=== PATIENT | male | born 1940 | race Caucasian/White ===

== ENCOUNTER 2018-10-26 16:34 | Inpatient (IN) ==
[2018-10-26 17:41] LABS: Basophils % 0.5 % (0.0-0.8); Eosinophils % 0.2 % (0.00-10.9); Hematocrit 45.8 VOL% (42.0-52.0); Hemoglobin 15.1 GM/DL (14.0-18.0); Immature Granulocytes % 0.7 %; Immature Granulocytes Absolute 0.03 #; Lymphocytes # 0.9 10*3/uL (1.4-4.0); Mean Platelet Volume 8.8 FL (9.6-12.0); Monocytes % 13.5 % (1.7-12.7); Neutrophils % 64.1 % (38.7-73.9); Platelet Count 172 T/CUMM (130-400); Red Blood Count 4.87 MC/CUMM (3.8-5.5); Red Cell Distribution Width 12.4 % (9.3-17.3); White Blood Count 4.2 T/CUMM (4-12)
[2018-10-26] MEDS ORDERED: ACETAMINOPHEN 500 MG TABLET PO STA (17:50)
[2018-10-26 17:51] LABS: PT Patient Result 11.1 SECS (9.6-12.2); Partial Thromboplastin Time 27.4 SECS (20.8-36.0)
[2018-10-26] MEDS ORDERED: ACETAMINOPHEN 500 MG TABLET ONE (17:51)
[2018-10-26 18:03] LABS: Albumin 3.7 G/DL (3.4-5.0); Bilirubin,Total 0.5 MG/DL (0.2-1.0); Calcium 8.7 MG/DL (8.5-10.1); Osmolality,Calculated 275.8 MOS/KG (273-304); Total Protein 7.4 G/DL (6.4-8.3)
[2018-10-26] MEDS ORDERED: LACTATED RINGERS 1,000 ML IV ONE (18:21)
[2018-10-26 18:27] LABS: Apearance,Urine CLEAR (Clear); Bilirubin,Urine Negative (Negative); Blood, Urine Negative (Negative); Glucose,Urine (UA) Negative (Negative); Ketones,Urine Negative (Negative); Mucus,Urine Occasional /LPF (Occasional); Nitrite,Urine Negative (Negative); Protein,Urine Negative; RBC,Urine 4 /HPF (0-4); Squamous Epithelial Cell,Urine Occasional /HPF (0-10); Urine Color Yellow (Yellow); Urine Specific Gravity 1.024 (1.001-1.035); Urine Urobilinogen < 2.0 EU/DL (0.2-1.0); WBC,Urine 4 /HPF (0-6)
[2018-10-26] MEDS ORDERED: ENOXAPARIN 40 MG/0.4 ML SYRINGE SUBCUT SCH (20:00)
[2018-10-26] MEDS ORDERED: FLUTICASONE 50 MCG NASAL SPRAY 16 GM BOTTLE BOTH NARES PRN (20:55)
[2018-10-26] MEDS ORDERED: SODIUM CHLORIDE 0.65% NASAL SPRAY 45 ML BOTTLE BOTH NARES PRN (20:55)
[2018-10-26] MEDS: DONEPEZIL 10 MG TABLET PO SCH (21:55)
[2018-10-26] MEDS: OSELTAMIVIR 30 MG CAPSULE PO SCH (21:56)
[2018-10-26] MEDS: FAMOTIDINE 20 MG TABLET PO SCH (21:56)
[2018-10-26] MEDS: ACETAMINOPHEN 500 MG TABLET PO SCH (21:56)
[2018-10-26] MEDS: cefTRIAXone 1,000 MG in SODIUM CHLORIDE 0.9% 100 ML IV SCH (21:57)
[2018-10-27] MEDS: ACETAMINOPHEN 500 MG TABLET PO PRN ×2 (05:09→16:14)
[2018-10-27 05:11] LABS: Basophils % 0.6 % (0.0-0.8); Hematocrit 41.9 VOL% (42.0-52.0); Immature Granulocytes % 0.6 %; Immature Granulocytes Absolute 0.02 #; Lymphocytes % 27.4 % (21.2-54.2); Mean Corpuscular HGB Conc 33.4 GM/DL (32-36); Mean Corpuscular Volume 93.3 FL (87-102); Mean Platelet Volume 9.1 FL (9.6-12.0); Monocytes % 8.6 % (1.7-12.7); Neutrophils % 62.8 % (38.7-73.9); Platelet Count 125 T/CUMM (130-400); Red Blood Count 4.49 MC/CUMM (3.8-5.5); Red Cell Distribution Width 12.4 % (9.3-17.3); White Blood Count 3.6 T/CUMM (4-12)
[2018-10-27] MEDS: VALSARTAN 160 MG TABLET PO SCH (08:45)
[2018-10-27] MEDS: amLODIPine 5 MG TABLET PO SCH (08:45)
[2018-10-27] MEDS: MONTELUKAST 10 MG TABLET PO SCH (08:45)
[2018-10-27] MEDS: PANTOPRAZOLE 40 MG TABLET PO SCH (08:45)
[2018-10-27] MEDS: IBUPROFEN 200 MG TABLET PO SCH (08:45)
[2018-10-27] MEDS: FAMOTIDINE 20 MG TABLET PO SCH ×2 (08:46→20:56)
[2018-10-27] MEDS: OSELTAMIVIR 30 MG CAPSULE PO SCH ×2 (10:17→20:56)
[2018-10-27] MEDS: cefTRIAXone 1,000 MG in SODIUM CHLORIDE 0.9% 100 ML IV SCH (20:55)
[2018-10-27] MEDS: ACETAMINOPHEN 500 MG TABLET PO SCH (20:56)
[2018-10-27] MEDS: DONEPEZIL 10 MG TABLET PO SCH (20:56)
[2018-10-28] MEDS: ACETAMINOPHEN 500 MG TABLET PO PRN (04:36)
[2018-10-28 05:26] LABS: Basophils % 0.3 % (0.0-0.8); Hematocrit 43.3 VOL% (42.0-52.0); Hemoglobin 14.6 GM/DL (14.0-18.0); Immature Granulocytes % 0.3 %; Immature Granulocytes Absolute 0.01 #; Lymphocytes # 0.9 10*3/uL (1.4-4.0); Lymphocytes % 27.9 % (21.2-54.2); Mean Corpuscular HGB Conc 33.7 GM/DL (32-36); Mean Platelet Volume 9.5 FL (9.6-12.0); Monocytes % 6.2 % (1.7-12.7); Neutrophils % 65.3 % (38.7-73.9); Platelet Count 97 T/CUMM (130-400); Red Blood Count 4.76 MC/CUMM (3.8-5.5); Red Cell Distribution Width 12.3 % (9.3-17.3); White Blood Count 3.2 T/CUMM (4-12)
[2018-10-28 05:52] LABS: Lymphocytes 28 % (20-55); Platelet Estimate Decreased; Segmented Neutrophils 68 % (50-85); Total Cells Counted 100
[2018-10-28 05:53] LABS: Hypochromasia 1+
[2018-10-28 05:56] LABS: Calcium 8.3 MG/DL (8.5-10.1); Osmolality,Calculated 271.1 MOS/KG (273-304)
[2018-10-28] MEDS ORDERED: MAGNESIUM SULF RIDER 4 GM in PREMIX 1 EACH IV ONE (08:03)
[2018-10-28] MEDS ORDERED: TUBERCULIN SKIN TEST 0.1 ML SYRINGE INTRADERM ONE (08:46)
[2018-10-28] MEDS: OSELTAMIVIR 30 MG CAPSULE PO SCH (09:07)
[2018-10-28] MEDS: IBUPROFEN 200 MG TABLET PO SCH (09:07)
[2018-10-28] MEDS: MONTELUKAST 10 MG TABLET PO SCH (09:07)
[2018-10-28] MEDS: amLODIPine 5 MG TABLET PO SCH (09:08)
[2018-10-28] MEDS: FAMOTIDINE 20 MG TABLET PO SCH ×2 (09:08→20:04)
[2018-10-28] MEDS: VALSARTAN 160 MG TABLET PO SCH (09:08)
[2018-10-28] MEDS: PANTOPRAZOLE 40 MG TABLET PO SCH (09:08)
[2018-10-28] MEDS: VANCOMYCIN INJ 1,250 MG in SODIUM CHLORIDE 0.9% 250 ML IV SCH (15:51)
[2018-10-28] MEDS ORDERED: GENTAMICIN INJ 560 MG in SODIUM CHLORIDE 0.9% 100 ML IV SCH (17:00)
[2018-10-28] MEDS: OSELTAMIVIR 75 MG CAPSULE PO SCH (20:02)
[2018-10-28] MEDS: ACETAMINOPHEN 500 MG TABLET PO SCH (20:02)
[2018-10-28] MEDS: DONEPEZIL 10 MG TABLET PO SCH (20:04)
[2018-10-28] MEDS ORDERED: cefTRIAXone 1,000 MG in SYRINGE 1 EACH IV SCH (21:00)
[2018-10-29] MEDS: VANCOMYCIN INJ 1,250 MG in SODIUM CHLORIDE 0.9% 250 ML IV SCH ×2 (03:37→16:05)
[2018-10-29] MEDS: ACETAMINOPHEN 500 MG TABLET PO PRN (05:45)
[2018-10-29 05:49] LABS: Eosinophils % 0.3 % (0.00-10.9); Hematocrit 45.8 VOL% (42.0-52.0); Hemoglobin 15.3 GM/DL (14.0-18.0); Immature Granulocytes % 0.3 %; Immature Granulocytes Absolute 0.01 #; Lymphocytes # 1.5 10*3/uL (1.4-4.0); Lymphocytes % 48.8 % (21.2-54.2); Mean Corpuscular HGB Conc 33.4 GM/DL (32-36); Mean Corpuscular Volume 92.2 FL (87-102); Mean Platelet Volume 9.9 FL (9.6-12.0); Monocytes % 6.7 % (1.7-12.7); Neutrophils % 42.9 % (38.7-73.9); Platelet Count 98 T/CUMM (130-400); Red Blood Count 4.97 MC/CUMM (3.8-5.5); Red Cell Distribution Width 12.6 % (9.3-17.3)
[2018-10-29 06:01] LABS: Osmolality,Calculated 267.4 MOS/KG (273-304)
[2018-10-29 06:12] LABS: Band Neutrophils 2 % (0-10); Hypochromasia 1+; Lymphocytes 41 % (20-55); Platelet Estimate Decreased; Segmented Neutrophils 47 % (50-85); Total Cells Counted 100
[2018-10-29] MEDS: IBUPROFEN 200 MG TABLET PO SCH (09:08)
[2018-10-29] MEDS: amLODIPine 5 MG TABLET PO SCH (09:08)
[2018-10-29] MEDS: FAMOTIDINE 20 MG TABLET PO SCH ×2 (09:08→21:36)
[2018-10-29] MEDS: VALSARTAN 160 MG TABLET PO SCH (09:08)
[2018-10-29] MEDS: OSELTAMIVIR 75 MG CAPSULE PO SCH ×2 (09:08→21:37)
[2018-10-29] MEDS: MONTELUKAST 10 MG TABLET PO SCH (09:09)
[2018-10-29] MEDS: PANTOPRAZOLE 40 MG TABLET PO SCH (09:09)
[2018-10-29] MEDS: DONEPEZIL 10 MG TABLET PO SCH (21:36)
[2018-10-29] MEDS: ACETAMINOPHEN 500 MG TABLET PO SCH (21:37)
[2018-10-30 05:38] LABS: Basophils % 0.4 % (0.0-0.8); Eosinophils % 0.4 % (0.00-10.9); Hematocrit 42.6 VOL% (42.0-52.0); Hemoglobin 14.2 GM/DL (14.0-18.0); Immature Granulocytes % 0.4 %; Immature Granulocytes Absolute 0.01 #; Lymphocytes # 1.6 10*3/uL (1.4-4.0); Lymphocytes % 56.9 % (21.2-54.2); Mean Corpuscular HGB Conc 33.3 GM/DL (32-36); Mean Corpuscular Volume 91.2 FL (87-102); Mean Platelet Volume 10.5 FL (9.6-12.0); Monocytes % 13.1 % (1.7-12.7); Neutrophils % 28.8 % (38.7-73.9); Platelet Count 110 T/CUMM (130-400); Red Blood Count 4.67 MC/CUMM (3.8-5.5); Red Cell Distribution Width 12.9 % (9.3-17.3); White Blood Count 2.8 T/CUMM (4-12)
[2018-10-30 05:54] LABS: Calcium 8.5 MG/DL (8.5-10.1); Osmolality,Calculated 276.7 MOS/KG (273-304)
[2018-10-30 06:04] LABS: Atypical Lymphocytes Few; Hypochromasia 1+; Lymphocytes 60 % (20-55); Platelet Estimate Decreased; Segmented Neutrophils 31 % (50-85); Total Cells Counted 100
[2018-10-30] MEDS: VALSARTAN 160 MG TABLET PO SCH (08:42)
[2018-10-30] MEDS: IBUPROFEN 200 MG TABLET PO SCH (08:42)
[2018-10-30] MEDS: MONTELUKAST 10 MG TABLET PO SCH (08:42)
[2018-10-30] MEDS: PANTOPRAZOLE 40 MG TABLET PO SCH (08:43)
[2018-10-30] MEDS: OSELTAMIVIR 75 MG CAPSULE PO SCH (08:43)
[2018-10-30] MEDS: amLODIPine 5 MG TABLET PO SCH (08:43)
[2018-10-30] MEDS: FAMOTIDINE 20 MG TABLET PO SCH (08:43)
[2018-10-30 12:22] VITALS: BP 117/69
== END 2018-10-30 11:55 | disposition swing bed (61) | DRG 153 ==
LOC: N.ED 16:34 → N.EDINP 16:34 → N.TELEN 20:38
PROVIDERS: ADMIT Internal Medicine; ATTEND Internal Medicine

== ENCOUNTER 2020-03-04 15:30 | Inpatient (IN) ==
[2020-03-04 15:34] LABS: Bacteria,Urine Trace /HPF (Negative); Bilirubin,Urine Negative (Negative); Blood, Urine Negative (Negative); Glucose,Urine (UA) Negative (Negative); Ketones,Urine Negative (Negative); Nitrite,Urine Negative (Negative); Protein,Urine Trace MG/DL (Negative); RBC,Urine 0-2 /HPF (0-2/HPF); Squamous Epithelial Cell,Urine Few /HPF (0-10); Urine Appearance CLEAR (Clear); Urine Color Yellow (Yellow); Urine Specific Gravity > 1.030; Urine Urobilinogen 0.2 EU/DL (0.2-1.0); Urine pH 5.5; WBC,Urine 0-4 /HPF (0-4/HPF)
[2020-03-04 15:45] LABS: Hematocrit 50.8 VOL% (42-52); Hemoglobin 16.4 GM/DL (12.6-17.4); Lymphocytes % 43.6 %; Mean Corpuscular HGB Conc 32.3 GM/DL (31.8-35.4); Mean Corpuscular Volume 90.1 fl (80-97); Mean Platelet Volume 8.3 fl (<99); Neutrophils % 50.4 % (42.2-75.2); Platelet Count 266 T/CUMM (142-424); Red Blood Count 5.64 MC/CUMM (4.69-6.13); White Blood Count 9.1 T/CUMM (4.6-10.2)
[2020-03-04 15:51] LABS: Albumin 4.7 G/DL (3.5-5.0); Bilirubin,Total 1.3 MG/DL (0.2-1.3); Potassium 4.4 MMOL/L (3.6-5.0); Total Protein 8.4 G/DL (6.3-8.2)
[2020-06-12] MEDS ORDERED: GLUCAGON 1 MG VIAL IM PRN (23:54)
[2020-06-12] MEDS ORDERED: DEXTROSE 50% 25 GM/50 ML VIAL IV PRN (23:54)
[2020-06-12] MEDS ORDERED: ONDANSETRON 4 MG/2 ML VIAL IV PRN (23:54)
[2020-06-12] MEDS ORDERED: MORPHINE 4 MG/1 ML VIAL IV PRN (23:54)
[2020-06-13] MEDS ORDERED: SODIUM CHLORIDE 0.9% 1,000 ML IV SCH (00:30)
[2020-06-13 07:19] LABS: Basophils % 0.2 % (0.0-0.8); Eosinophils % 0.1 % (0.00-10.9); Hematocrit 45.8 VOL% (42.0-52.0); Hemoglobin 15.5 GM/DL (14.0-18.0); Immature Granulocytes % 0.7 %; Immature Granulocytes Absolute 0.11 #; Lymphocytes # 1.1 10*3/uL (1.4-4.0); Mean Corpuscular HGB Conc 33.8 GM/DL (32-36); Mean Corpuscular Volume 90.7 FL (87-102); Mean Platelet Volume 9.7 FL (9.6-12.0); Monocytes % 5.7 % (1.7-12.7); Neutrophils % 86.3 % (38.7-73.9); Platelet Count 190 T/CUMM (130-400); Red Blood Count 5.05 MC/CUMM (3.8-5.5); White Blood Count 16.1 T/CUMM (4-12)
[2020-06-13 07:48] LABS: Albumin 3.1 G/DL (3.4-5.0); Bilirubin,Total 6.9 MG/DL (0.2-1.0); Calcium 8.7 MG/DL (8.5-10.1); Potassium 4.2 MMOL/L (3.5-5.1); Total Protein 6.9 G/DL (6.4-8.2)
[2020-06-13] MEDS: SODIUM BICARB INJ 50 MEQ in STERILE WATER INJ 1,000 ML IV SCH (17:13)
[2020-06-13] MEDS ORDERED: GENTAMICIN INJ 80 MG in PREMIX 1 EACH IV ONE (17:40)
[2020-06-13] MEDS: MONTELUKAST 10 MG TABLET PO SCH (20:10)
[2020-06-13] MEDS: CETIRIZINE 10 MG TABLET PO SCH (20:10)
[2020-06-13] MEDS: DONEPEZIL 10 MG TABLET PO SCH (20:10)
[2020-06-13] MEDS: MEMANTINE 5 MG TABLET PO SCH (20:10)
[2020-06-14] MEDS: PIPERACILLIN/TAZOBACTAM 3,375 MG in SODIUM CHLORIDE 0.9% 100 ML IV SCH ×3 (05:37→23:16)
[2020-06-14 05:52] LABS: Basophils % 0.4 % (0.0-0.8); Eosinophils # 0.2 10*3/uL (0.0-0.87); Eosinophils % 1.5 % (0.00-10.9); Hematocrit 41.2 VOL% (42.0-52.0); Hemoglobin 14.3 GM/DL (14.0-18.0); Immature Granulocytes % 0.4 %; Immature Granulocytes Absolute 0.04 #; Lymphocytes # 2.3 10*3/uL (1.4-4.0); Lymphocytes % 22.4 % (21.2-54.2); Mean Corpuscular HGB Conc 34.7 GM/DL (32-36); Mean Corpuscular Volume 90.2 FL (87-102); Mean Platelet Volume 10.3 FL (9.6-12.0); Monocytes % 9.3 % (1.7-12.7); Platelet Count 192 T/CUMM (130-400); Red Blood Count 4.57 MC/CUMM (3.8-5.5); Red Cell Distribution Width 13.2 % (9.3-17.3); White Blood Count 10.2 T/CUMM (4-12)
[2020-06-14 05:59] LABS: INR 1.1; PT Patient Result 12.5 SECS (10.5-12.0)
[2020-06-14 06:13] LABS: Bilirubin,Total 8.1 MG/DL (0.2-1.0); Calcium 8.5 MG/DL (8.5-10.1); Potassium 3.5 MMOL/L (3.5-5.1); Total Protein 6.5 G/DL (6.4-8.2)
[2020-06-14] MEDS ORDERED: INDOMETHACIN SUPP 50 MG SUPP RECTAL ONE (08:00)
[2020-06-14] MEDS ORDERED: LACTATED RINGERS 1,000 ML IV SCH (08:00)
[2020-06-14] MEDS ORDERED: PNEUMOCOCCAL VACCINE (13 VALENT) 0.5 ML SYRINGE IM ONE (09:00)
[2020-06-14] MEDS: SODIUM BICARB INJ 50 MEQ in STERILE WATER INJ 1,000 ML IV SCH (09:15)
[2020-06-14] MEDS ORDERED: fentaNYL 100 MCG/2 ML VIAL ONE (11:50)
[2020-06-14] MEDS ORDERED: LIDOCAINE 2% 5 ML VIAL ONE (12:24)
[2020-06-14] MEDS ORDERED: SUCCINYLCHOLINE 200 MG/10 ML VIAL ONE (12:24)
[2020-06-14] MEDS ORDERED: ONDANSETRON 4 MG/2 ML VIAL ONE (12:24)
[2020-06-14] MEDS ORDERED: ROCURONIUM 50 MG/5 ML VIAL IV ONE (12:24)
[2020-06-14] MEDS ORDERED: propofoL 200 MG/20 ML VIAL IV ONE (12:24)
[2020-06-14] MEDS ORDERED: DEXAMETHASONE 4 MG/1 ML VIAL ONE (12:24)
[2020-06-14] MEDS ORDERED: SEVOFLURANE 1 UNIT/15 MINUTE INH ONE (12:24)
[2020-06-14] MEDS: PANTOPRAZOLE 40 MG TABLET PO SCH (13:42)
[2020-06-14] MEDS: MEMANTINE 5 MG TABLET PO SCH ×2 (13:42→20:47)
[2020-06-14] MEDS: LACTATED RINGERS 1,000 ML IV SCH (13:43)
[2020-06-14] MEDS: amLODIPine 5 MG TABLET PO SCH (16:12)
[2020-06-14] MEDS: METOPROLOL SUCCINATE XL 25 MG TABLET PO SCH (20:47)
[2020-06-14] MEDS: MONTELUKAST 10 MG TABLET PO SCH (20:47)
[2020-06-14] MEDS: DONEPEZIL 10 MG TABLET PO SCH (20:47)
[2020-06-14] MEDS: CETIRIZINE 10 MG TABLET PO SCH (20:47)
[2020-06-15 05:17] LABS: Basophils % 0.1 % (0.0-0.8); Eosinophils % 0.1 % (0.00-10.9); Hematocrit 42.5 VOL% (42.0-52.0); Hemoglobin 14.1 GM/DL (14.0-18.0); Immature Granulocytes % 0.5 %; Immature Granulocytes Absolute 0.06 #; Lymphocytes # 1.4 10*3/uL (1.4-4.0); Lymphocytes % 12.4 % (21.2-54.2); Mean Corpuscular HGB Conc 33.2 GM/DL (32-36); Mean Corpuscular Volume 91.4 FL (87-102); Mean Platelet Volume 9.8 FL (9.6-12.0); Monocytes % 4.1 % (1.7-12.7); Neutrophils % 82.8 % (38.7-73.9); Platelet Count 226 T/CUMM (130-400); Red Blood Count 4.65 MC/CUMM (3.8-5.5); Red Cell Distribution Width 12.7 % (9.3-17.3); White Blood Count 11.2 T/CUMM (4-12)
[2020-06-15] MEDS: PIPERACILLIN/TAZOBACTAM 3,375 MG in SODIUM CHLORIDE 0.9% 100 ML IV SCH ×3 (05:34→20:26)
[2020-06-15 05:39] LABS: Bilirubin,Total 3.3 MG/DL (0.2-1.0); Calcium 8.8 MG/DL (8.5-10.1); Osmolality,Calculated 272.2 MOS/KG (273-304); Potassium 4.4 MMOL/L (3.5-5.1); Total Protein 6.8 G/DL (6.4-8.2)
[2020-06-15] MEDS: MEMANTINE 5 MG TABLET PO SCH ×2 (09:55→20:24)
[2020-06-15] MEDS: amLODIPine 5 MG TABLET PO SCH (09:55)
[2020-06-15] MEDS: METOPROLOL SUCCINATE XL 25 MG TABLET PO SCH ×2 (09:55→20:24)
[2020-06-15] MEDS: PANTOPRAZOLE 40 MG TABLET PO SCH (09:55)
[2020-06-15] MEDS: LACTATED RINGERS 1,000 ML IV SCH (10:15)
[2020-06-15] MEDS ORDERED: TISSUE ADHESIVE 1 EACH APPLICATOR TOP ONE (11:02)
[2020-06-15] MEDS ORDERED: LIDOCAINE 2% 5 ML VIAL ONE (11:31)
[2020-06-15] MEDS ORDERED: propofoL 200 MG/20 ML VIAL IV ONE (11:31)
[2020-06-15] MEDS ORDERED: ETOMIDATE 40 MG/20 ML VIAL IV ONE (11:32)
[2020-06-15] MEDS ORDERED: ROCURONIUM 50 MG/5 ML VIAL IV ONE (11:32)
[2020-06-15] MEDS ORDERED: fentaNYL 100 MCG/2 ML VIAL ONE (11:34)
[2020-06-15] MEDS ORDERED: SEVOFLURANE 1 UNIT/15 MINUTE INH ONE (11:38)
[2020-06-15] MEDS ORDERED: MORPHINE 4 MG/1 ML VIAL IV PRN ×2 (11:53)
[2020-06-15] MEDS ORDERED: LACTATED RINGERS 1,000 ML IV SCH (12:30)
[2020-06-15] MEDS ORDERED: GLYCOPYRROLATE 0.4 MG/2 ML VIAL ONE (12:33)
[2020-06-15] MEDS ORDERED: ePHEDrine 50 MG/ML VIAL ONE (12:36)
[2020-06-15] MEDS ORDERED: ONDANSETRON 4 MG/2 ML VIAL ONE (12:41)
[2020-06-15] MEDS ORDERED: DEXAMETHASONE 4 MG/1 ML VIAL ONE (12:41)
[2020-06-15] MEDS ORDERED: PHENYLEPHRINE 1 MG/10 ML SYRINGE IV ONE (13:02)
[2020-06-15] MEDS ORDERED: NEOSTIGMINE 10 MG/10 ML VIAL ONE ×2 (13:15)
[2020-06-15] MEDS ORDERED: ONDANSETRON 4 MG/2 ML VIAL IV PRN (14:07)
[2020-06-15] MEDS ORDERED: HYDROmorphone 2 MG/1 ML VIAL IV PRN (14:07)
[2020-06-15] MEDS: MORPHINE 10 MG/1 ML VIAL IV PRN ×4 (14:18→14:38)
[2020-06-15] MEDS: SODIUM BICARB INJ 50 MEQ in STERILE WATER INJ 1,000 ML IV SCH ×2 (15:09→23:18)
[2020-06-15] MEDS: HYDROmorphone 2 MG/1 ML VIAL IV PRN (15:58)
[2020-06-15] MEDS: CETIRIZINE 10 MG TABLET PO SCH (20:24)
[2020-06-15] MEDS: MONTELUKAST 10 MG TABLET PO SCH (20:24)
[2020-06-15] MEDS: DONEPEZIL 10 MG TABLET PO SCH (20:24)
[2020-06-16] MEDS: HYDROmorphone 2 MG/1 ML VIAL IV PRN ×5 (04:38→20:28)
[2020-06-16] MEDS: PIPERACILLIN/TAZOBACTAM 3,375 MG in SODIUM CHLORIDE 0.9% 100 ML IV SCH ×3 (04:41→20:27)
[2020-06-16 05:22] LABS: Basophils % 0.1 % (0.0-0.8); Hematocrit 41.9 VOL% (42.0-52.0); Immature Granulocytes % 1.1 %; Immature Granulocytes Absolute 0.18 #; Lymphocytes # 1.4 10*3/uL (1.4-4.0); Lymphocytes % 8.4 % (21.2-54.2); Mean Corpuscular HGB Conc 33.4 GM/DL (32-36); Mean Corpuscular Volume 90.9 FL (87-102); Mean Platelet Volume 9.7 FL (9.6-12.0); Monocytes % 5.5 % (1.7-12.7); Neutrophils % 84.9 % (38.7-73.9); Platelet Count 242 T/CUMM (130-400); Red Blood Count 4.61 MC/CUMM (3.8-5.5); Red Cell Distribution Width 13.2 % (9.3-17.3); White Blood Count 16.9 T/CUMM (4-12)
[2020-06-16 05:41] LABS: Albumin 3.1 G/DL (3.4-5.0); Calcium 8.7 MG/DL (8.5-10.1); Potassium 4.3 MMOL/L (3.5-5.1)
[2020-06-16] MEDS: METOPROLOL SUCCINATE XL 25 MG TABLET PO SCH ×2 (08:47→20:25)
[2020-06-16] MEDS: PANTOPRAZOLE 40 MG TABLET PO SCH (08:47)
[2020-06-16] MEDS: amLODIPine 5 MG TABLET PO SCH (08:48)
[2020-06-16] MEDS: MEMANTINE 5 MG TABLET PO SCH ×2 (08:48→20:25)
[2020-06-16] MEDS: SODIUM BICARB INJ 50 MEQ in STERILE WATER INJ 1,000 ML IV SCH (11:00)
[2020-06-16] MEDS ORDERED: MEROPENEM 500 MG in SODIUM CHLORIDE 0.9% 100 ML IV SCH (12:30)
[2020-06-16] MEDS ORDERED: FUROSEMIDE 40 MG/4 ML VIAL IV ONE (12:33)
[2020-06-16] MEDS: ALBUTEROL/IPRATROPIUM 3 ML NEB RESP TX PRN ×2 (12:45→21:35)
[2020-06-16] MEDS: ACETAMINOPHEN 325 MG TABLET PO PRN ×3 (12:48→21:17)
[2020-06-16 14:12] LABS: Troponin I < 0.015 NG/ML (0.00-0.045)
[2020-06-16] MEDS ORDERED: VANCOMYCIN INJ 1,500 MG in SODIUM CHLORIDE 0.9% 500 ML IV ONE (15:00)
[2020-06-16 15:05] LABS: ABG Base Excess 2.7 MMOL/L (-2.5-2.5); ABG Oxygen Saturation 95.7 % (95-100); ABG PCO2 40.6 MM HG (35-48); ABG PH 7.441 (7.35-7.45); ABG PO2 82.2 MM HG (80-95); ABG TCO2 28.3 MMOL/L (23-27)
[2020-06-16] MEDS: MONTELUKAST 10 MG TABLET PO SCH (20:25)
[2020-06-16] MEDS: DONEPEZIL 10 MG TABLET PO SCH (20:25)
[2020-06-16] MEDS: CETIRIZINE 10 MG TABLET PO SCH (20:25)
[2020-06-16] MEDS: DOXYCYCLINE HYCLATE INJ 100 MG in SODIUM CHLORIDE 0.9% 100 ML IV SCH (23:20)
[2020-06-16 23:24] LABS: ABG Base Excess 3.3 MMOL/L (-2.5-2.5); ABG HCO3 27.3 MMOL/L (20-26); ABG Oxygen Saturation 97.8 % (95-100); ABG PCO2 39.2 MM HG (35-48); ABG PH 7.451 (7.35-7.45); ABG PO2 99.4 MM HG (80-95)
[2020-06-17] MEDS: ACETAMINOPHEN 325 MG TABLET PO PRN (01:35)
[2020-06-17] MEDS: PIPERACILLIN/TAZOBACTAM 3,375 MG in SODIUM CHLORIDE 0.9% 100 ML IV SCH ×3 (05:16→22:03)
[2020-06-17 06:23] LABS: Basophils # 0.1 10*3/uL (0.0-0.2); Basophils % 0.4 % (0.0-0.8); Eosinophils # 0.1 10*3/uL (0.0-0.87); Eosinophils % 0.8 % (0.00-10.9); Hematocrit 43.7 VOL% (42.0-52.0); Hemoglobin 14.5 GM/DL (14.0-18.0); Immature Granulocytes % 0.8 %; Immature Granulocytes Absolute 0.12 #; Lymphocytes # 2.4 10*3/uL (1.4-4.0); Lymphocytes % 15.6 % (21.2-54.2); Mean Corpuscular HGB Conc 33.2 GM/DL (32-36); Mean Platelet Volume 9.9 FL (9.6-12.0); Monocytes % 7.4 % (1.7-12.7); Platelet Count 218 T/CUMM (130-400); Red Cell Distribution Width 13.4 % (9.3-17.3); White Blood Count 15.6 T/CUMM (4-12)
[2020-06-17 06:40] LABS: Bilirubin,Total 4.1 MG/DL (0.2-1.0); Calcium 8.7 MG/DL (8.5-10.1); Osmolality,Calculated 281.7 MOS/KG (273-304); Potassium 3.6 MMOL/L (3.5-5.1); Total Protein 6.9 G/DL (6.4-8.2)
[2020-06-17 06:41] LABS: Troponin I < 0.015 NG/ML (0.00-0.045)
[2020-06-17] MEDS: amLODIPine 5 MG TABLET PO SCH (10:27)
[2020-06-17] MEDS: METOPROLOL SUCCINATE XL 25 MG TABLET PO SCH ×2 (10:27→22:00)
[2020-06-17] MEDS: MEMANTINE 5 MG TABLET PO SCH ×2 (10:27→22:00)
[2020-06-17] MEDS: PANTOPRAZOLE 40 MG TABLET PO SCH (10:27)
[2020-06-17] MEDS: DOXYCYCLINE HYCLATE INJ 100 MG in SODIUM CHLORIDE 0.9% 100 ML IV SCH ×2 (10:28→22:03)
[2020-06-17] MEDS ORDERED: SODIUM CHLORIDE 0.9% 500 ML IV ONE ×2 (15:55→17:30)
[2020-06-17] MEDS ORDERED: VANCOMYCIN INJ 1,500 MG in SODIUM CHLORIDE 0.9% 500 ML IV SCH (17:00)
[2020-06-17] MEDS ORDERED: ALBUTEROL/IPRATROPIUM 3 ML NEB RESP TX PRN (17:13)
[2020-06-17] MEDS ORDERED: DEXTROSE 50% 25 GM/50 ML VIAL IV PRN (17:14)
[2020-06-17] MEDS ORDERED: GLUCAGON 1 MG VIAL IM PRN (17:15)
[2020-06-17] MEDS ORDERED: ONDANSETRON 4 MG/2 ML VIAL IV PRN (17:18)
[2020-06-17] MEDS: VANCOMYCIN INJ 1,500 MG in SODIUM CHLORIDE 0.9% 500 ML IV SCH (18:38)
[2020-06-17] MEDS: HYDROmorphone 2 MG/1 ML VIAL IV PRN (20:06)
[2020-06-17] MEDS: MONTELUKAST 10 MG TABLET PO SCH (22:00)
[2020-06-17] MEDS: DONEPEZIL 10 MG TABLET PO SCH (22:00)
[2020-06-17] MEDS: CETIRIZINE 10 MG TABLET PO SCH (22:00)
[2020-06-18] MEDS: ACETAMINOPHEN 325 MG TABLET PO PRN ×2 (00:25→20:33)
[2020-06-18 05:36] LABS: Basophils # 0.1 10*3/uL (0.0-0.2); Basophils % 0.3 % (0.0-0.8); Eosinophils # 0.2 10*3/uL (0.0-0.87); Hematocrit 42.5 VOL% (42.0-52.0); Hemoglobin 13.6 GM/DL (14.0-18.0); Immature Granulocytes % 1.1 %; Lymphocytes # 2.7 10*3/uL (1.4-4.0); Lymphocytes % 14.5 % (21.2-54.2); Mean Corpuscular Volume 95.5 FL (87-102); Mean Platelet Volume 9.8 FL (9.6-12.0); Monocytes % 7.8 % (1.7-12.7); Neutrophils % 75.3 % (38.7-73.9); Platelet Count 205 T/CUMM (130-400); Red Blood Count 4.45 MC/CUMM (3.8-5.5); Red Cell Distribution Width 13.1 % (9.3-17.3); White Blood Count 18.3 T/CUMM (4-12)
[2020-06-18 06:11] LABS: Albumin 2.6 G/DL (3.4-5.0); Bilirubin,Total 3.3 MG/DL (0.2-1.0); Potassium 3.6 MMOL/L (3.5-5.1); Total Protein 6.7 G/DL (6.4-8.2)
[2020-06-18] MEDS: PIPERACILLIN/TAZOBACTAM 3,375 MG in SODIUM CHLORIDE 0.9% 100 ML IV SCH ×3 (07:15→22:12)
[2020-06-18 07:35] LABS: Band Neutrophils 1 % (0-10); Eosinophils 1 % (0-10); Hypochromasia Slight; Lymphocytes 21 % (20-55); Metamyelocytes 4 %; Segmented Neutrophils 72 % (50-85); Total Cells Counted 100
[2020-06-18 07:36] LABS: Microcytosis Slight; Platelet Estimate Adequate
[2020-06-18] MEDS: MEMANTINE 5 MG TABLET PO SCH ×2 (09:50→20:34)
[2020-06-18] MEDS: PANTOPRAZOLE 40 MG TABLET PO SCH (09:50)
[2020-06-18] MEDS: amLODIPine 5 MG TABLET PO SCH (09:50)
[2020-06-18] MEDS: METOPROLOL SUCCINATE XL 25 MG TABLET PO SCH ×2 (09:50→20:34)
[2020-06-18] MEDS: DOXYCYCLINE HYCLATE INJ 100 MG in SODIUM CHLORIDE 0.9% 100 ML IV SCH ×2 (10:03→22:13)
[2020-06-18 10:39] LABS: Bilirubin,Urine Negative (Negative); Blood, Urine Large mg/dL (Negative); Glucose,Urine (UA) Negative (Negative); Ketones,Urine 5 mg/dL (Negative); Mucus,Urine Occasional /LPF (Occasional); Nitrite,Urine Negative (Negative); Protein,Urine 30 MG/DL; RBC,Urine 430 /HPF (0-4); Urine Appearance CLEAR (Clear); Urine Color Amber (Yellow); Urine Specific Gravity 1.024 (1.001-1.035)
[2020-06-18] MEDS: ALBUTEROL/IPRATROPIUM 3 ML NEB RESP TX SCH ×2 (13:03→19:23)
[2020-06-18] MEDS: VANCOMYCIN INJ 1,500 MG in SODIUM CHLORIDE 0.9% 500 ML IV SCH (18:25)
[2020-06-18] MEDS: CETIRIZINE 10 MG TABLET PO SCH (20:34)
[2020-06-18] MEDS: MONTELUKAST 10 MG TABLET PO SCH (20:34)
[2020-06-18] MEDS: DONEPEZIL 10 MG TABLET PO SCH (20:34)
[2020-06-19] MEDS: ALBUTEROL/IPRATROPIUM 3 ML NEB RESP TX SCH ×4 (00:44→20:19)
[2020-06-19 04:49] LABS: Basophils % 0.3 % (0.0-0.8); Eosinophils # 0.2 10*3/uL (0.0-0.87); Eosinophils % 1.7 % (0.00-10.9); Hematocrit 41.4 VOL% (42.0-52.0); Hemoglobin 13.2 GM/DL (14.0-18.0); Immature Granulocytes % 1.7 %; Immature Granulocytes Absolute 0.22 #; Lymphocytes # 2.3 10*3/uL (1.4-4.0); Lymphocytes % 18.1 % (21.2-54.2); Mean Corpuscular HGB Conc 31.9 GM/DL (32-36); Mean Corpuscular Volume 95.8 FL (87-102); Mean Platelet Volume 10.6 FL (9.6-12.0); Monocytes % 7.7 % (1.7-12.7); Neutrophils % 70.5 % (38.7-73.9); Platelet Count 183 T/CUMM (130-400); Red Blood Count 4.32 MC/CUMM (3.8-5.5); Red Cell Distribution Width 12.9 % (9.3-17.3); White Blood Count 12.8 T/CUMM (4-12)
[2020-06-19 05:42] LABS: Albumin 2.3 G/DL (3.4-5.0); Bilirubin,Total 2.2 MG/DL (0.2-1.0); Calcium 8.5 MG/DL (8.5-10.1); Osmolality,Calculated 277.8 MOS/KG (273-304); Potassium 3.8 MMOL/L (3.5-5.1); Total Protein 6.7 G/DL (6.4-8.2)
[2020-06-19] MEDS: PIPERACILLIN/TAZOBACTAM 3,375 MG in SODIUM CHLORIDE 0.9% 100 ML IV SCH ×3 (06:01→22:06)
[2020-06-19] MEDS: PANTOPRAZOLE 40 MG TABLET PO SCH (09:21)
[2020-06-19] MEDS: MEMANTINE 5 MG TABLET PO SCH ×2 (09:21→22:05)
[2020-06-19] MEDS: METOPROLOL SUCCINATE XL 25 MG TABLET PO SCH ×2 (09:21→22:05)
[2020-06-19] MEDS: DOXYCYCLINE HYCLATE INJ 100 MG in SODIUM CHLORIDE 0.9% 100 ML IV SCH (11:52)
[2020-06-19] MEDS: amLODIPine 5 MG TABLET PO SCH (11:53)
[2020-06-19] MEDS ORDERED: MIDAZOLAM 10 MG/2 ML VIAL ONE (14:36)
[2020-06-19] MEDS: DONEPEZIL 10 MG TABLET PO SCH (22:05)
[2020-06-19] MEDS: CETIRIZINE 10 MG TABLET PO SCH (22:05)
[2020-06-19] MEDS: MONTELUKAST 10 MG TABLET PO SCH (22:05)
[2020-06-20] MEDS: ALBUTEROL/IPRATROPIUM 3 ML NEB RESP TX SCH ×4 (00:55→19:16)
[2020-06-20] MEDS: ACETAMINOPHEN 325 MG TABLET PO PRN (04:02)
[2020-06-20 05:02] LABS: Basophils # 0.1 10*3/uL (0.0-0.2); Basophils % 0.5 % (0.0-0.8); Eosinophils # 0.2 10*3/uL (0.0-0.87); Eosinophils % 2.1 % (0.00-10.9); Hematocrit 39.8 VOL% (42.0-52.0); Hemoglobin 13.2 GM/DL (14.0-18.0); Immature Granulocytes % 1.4 %; Immature Granulocytes Absolute 0.15 #; Lymphocytes # 2.2 10*3/uL (1.4-4.0); Lymphocytes % 20.6 % (21.2-54.2); Mean Corpuscular HGB Conc 33.2 GM/DL (32-36); Mean Corpuscular Volume 93.2 FL (87-102); Mean Platelet Volume 9.5 FL (9.6-12.0); Monocytes % 9.1 % (1.7-12.7); Neutrophils % 66.3 % (38.7-73.9); Platelet Count 265 T/CUMM (130-400); Red Blood Count 4.27 MC/CUMM (3.8-5.5); Red Cell Distribution Width 12.9 % (9.3-17.3); White Blood Count 10.4 T/CUMM (4-12)
[2020-06-20 05:22] LABS: Calcium 8.1 MG/DL (8.5-10.1); Osmolality,Calculated 281.4 MOS/KG (273-304); Potassium 3.4 MMOL/L (3.5-5.1)
[2020-06-20] MEDS ORDERED: POTASSIUM CHLORIDE 20 MEQ TABLET PO PRN (07:49)
[2020-06-20] MEDS ORDERED: POTASSIUM CHLORIDE RIDER 10 MEQ in PREMIX 1 EACH IV PRN (07:49)
[2020-06-20] MEDS: PIPERACILLIN/TAZOBACTAM 3,375 MG in SODIUM CHLORIDE 0.9% 100 ML IV SCH (09:00)
[2020-06-20] MEDS: PANTOPRAZOLE 40 MG TABLET PO SCH (09:01)
[2020-06-20] MEDS: MEMANTINE 5 MG TABLET PO SCH ×2 (09:01→21:10)
[2020-06-20] MEDS: METOPROLOL SUCCINATE XL 25 MG TABLET PO SCH ×2 (09:01→21:10)
[2020-06-20] MEDS: amLODIPine 5 MG TABLET PO SCH (09:02)
[2020-06-20] MEDS ORDERED: POTASSIUM CHLORIDE 20 MEQ/15 ML UDCUP PO ONE (09:34)
[2020-06-20 09:39] LABS: Albumin 2.7 G/DL (3.4-5.0); Bilirubin,Direct 1.06 MG/DL (0.0-0.20); Bilirubin,Indirect 1.4 MG/DL (0.0-1.0); Bilirubin,Total 2.5 MG/DL (0.2-1.0); Total Protein 6.9 G/DL (6.4-8.2)
[2020-06-20] MEDS: HYDROmorphone 2 MG/1 ML VIAL IV PRN (17:11)
[2020-06-20] MEDS: AMOXICILLIN/CLAV 875 MG TABLET PO SCH (17:12)
[2020-06-20] MEDS: MONTELUKAST 10 MG TABLET PO SCH (21:10)
[2020-06-20] MEDS: CETIRIZINE 10 MG TABLET PO SCH (21:10)
[2020-06-20] MEDS: DONEPEZIL 10 MG TABLET PO SCH (21:10)
[2020-06-20] MEDS: OLANZapine 2.5 MG TABLET PO SCH (21:10)
[2020-06-21] MEDS: ALBUTEROL/IPRATROPIUM 3 ML NEB RESP TX SCH ×4 (00:57→19:48)
[2020-06-21 05:19] LABS: Basophils # 0.1 10*3/uL (0.0-0.2); Basophils % 0.4 % (0.0-0.8); Eosinophils # 0.2 10*3/uL (0.0-0.87); Hematocrit 40.3 VOL% (42.0-52.0); Hemoglobin 13.3 GM/DL (14.0-18.0); Immature Granulocytes % 0.9 %; Lymphocytes % 17.7 % (21.2-54.2); Mean Corpuscular Volume 93.3 FL (87-102); Mean Platelet Volume 9.5 FL (9.6-12.0); Monocytes % 8.9 % (1.7-12.7); Neutrophils % 70.1 % (38.7-73.9); Platelet Count 288 T/CUMM (130-400); Red Blood Count 4.32 MC/CUMM (3.8-5.5); Red Cell Distribution Width 13.1 % (9.3-17.3); White Blood Count 11.2 T/CUMM (4-12)
[2020-06-21 05:55] LABS: Calcium 8.7 MG/DL (8.5-10.1); Osmolality,Calculated 275.7 MOS/KG (273-304); Potassium 4.1 MMOL/L (3.5-5.1)
[2020-06-21 06:02] LABS: Albumin 2.6 G/DL (3.4-5.0); Bilirubin,Direct 1.06 MG/DL (0.0-0.20); Bilirubin,Indirect 1.3 MG/DL (0.0-1.0); Bilirubin,Total 2.4 MG/DL (0.2-1.0); Total Protein 6.9 G/DL (6.4-8.2)
[2020-06-21] MEDS: AMOXICILLIN/CLAV 875 MG TABLET PO SCH ×2 (08:54→17:42)
[2020-06-21] MEDS: amLODIPine 5 MG TABLET PO SCH (08:54)
[2020-06-21] MEDS: PANTOPRAZOLE 40 MG TABLET PO SCH (08:54)
[2020-06-21] MEDS: MEMANTINE 5 MG TABLET PO SCH (08:54)
[2020-06-21] MEDS: METOPROLOL SUCCINATE XL 25 MG TABLET PO SCH ×2 (08:54→20:53)
[2020-06-21] MEDS: HYDROmorphone 2 MG/1 ML VIAL IV PRN ×2 (17:42→21:00)
[2020-06-21] MEDS: DONEPEZIL 10 MG TABLET PO SCH (20:53)
[2020-06-21] MEDS: CETIRIZINE 10 MG TABLET PO SCH (20:53)
[2020-06-21] MEDS: MONTELUKAST 10 MG TABLET PO SCH (20:53)
[2020-06-21] MEDS: OLANZapine 2.5 MG TABLET PO SCH (20:53)
[2020-06-21] MEDS: MEMANTINE 10 MG TABLET PO SCH (20:53)
[2020-06-22] MEDS: ALBUTEROL/IPRATROPIUM 3 ML NEB RESP TX SCH ×4 (03:03→19:25)
[2020-06-22] MEDS: MEMANTINE 10 MG TABLET PO SCH ×2 (08:31→20:48)
[2020-06-22] MEDS: METOPROLOL SUCCINATE XL 25 MG TABLET PO SCH ×2 (08:31→20:48)
[2020-06-22] MEDS: PANTOPRAZOLE 40 MG TABLET PO SCH (08:31)
[2020-06-22] MEDS: amLODIPine 5 MG TABLET PO SCH (08:31)
[2020-06-22] MEDS: AMOXICILLIN/CLAV 875 MG TABLET PO SCH ×2 (08:31→17:28)
[2020-06-22] MEDS: HYDROmorphone 2 MG/1 ML VIAL IV PRN ×2 (12:24→20:48)
[2020-06-22] MEDS ORDERED: TUBERCULIN SKIN TEST 0.1 ML SYRINGE INTRADERM ONE (14:37)
[2020-06-22] MEDS: DONEPEZIL 10 MG TABLET PO SCH (20:48)
[2020-06-22] MEDS: CETIRIZINE 10 MG TABLET PO SCH (20:48)
[2020-06-22] MEDS: OLANZapine 2.5 MG TABLET PO SCH (20:48)
[2020-06-22] MEDS: MONTELUKAST 10 MG TABLET PO SCH (20:49)
[2020-06-22] MEDS ORDERED: LORazepam 2 MG/1 ML VIAL IM ONE (21:35)
[2020-06-23] MEDS: ALBUTEROL/IPRATROPIUM 3 ML NEB RESP TX SCH ×2 (00:55→06:55)
[2020-06-23] MEDS: METOPROLOL SUCCINATE XL 25 MG TABLET PO SCH (08:46)
[2020-06-23] MEDS: MEMANTINE 10 MG TABLET PO SCH (08:46)
[2020-06-23] MEDS: amLODIPine 5 MG TABLET PO SCH (08:46)
[2020-06-23] MEDS: PANTOPRAZOLE 40 MG TABLET PO SCH (08:46)
[2020-06-23] MEDS: AMOXICILLIN/CLAV 875 MG TABLET PO SCH (08:46)
[2020-06-23 11:49] VITALS: BP 131/68
== END 2020-06-23 13:25 | disposition swing bed (61) | DRG 417 ==
LOC: S.AIR 15:30 → N.5E 06-12 23:28 → SUATTDRO 06-12 23:28 → N.ICU 06-16 22:42 → N.4E 06-19 14:54
PROVIDERS: ADMIT Family Medicine; ATTEND Internal Medicine
PROC: LAPCHOL (2020-06-15 12:17)